=== PATIENT | male | born 1960 | race Native Hawaiian/Other Pacific Islander ===

== ENCOUNTER 2018-05-25 13:15 | Outpatient (CLI) | payer BC, OTHER | END 2018-05-25 19:42 | disposition home or self-care (01) | LOC: LAB 13:15 | DX: N41.0 Acute prostatitis (principal) | CPT/HCPCS: 87077; 87086; 87088; 87186 ==

== ENCOUNTER 2018-05-29 14:58 | Outpatient (CLI) | payer BC, OTHER | END 2018-05-29 22:32 | disposition home or self-care (01) | LOC: US 14:58 | DX: N39.0 Urinary tract infection, site not specified (principal); N50.811 Right testicular pain ==

== ENCOUNTER 2018-07-14 07:54 | Outpatient (CLI) | payer BC, OTHER | END 2018-07-14 19:27 | disposition home or self-care (01) | LOC: LABW 07:54 | DX: R73.9 Hyperglycemia, unspecified (principal) | CPT/HCPCS: 36415; 82947; 83036 ==

== ENCOUNTER 2021-03-01 08:01 | Outpatient (CLI) | payer BC, OTHER | END 2021-03-01 10:00 | disposition home or self-care (01) | LOC: CT 08:01 | PROVIDERS: ATTEND Internal Medicine | DX: Z12.2 Encounter for screening for malignant neoplasm of respiratory organs (principal) ==

== ENCOUNTER 2022-01-18 08:07 | Outpatient (CLI) | payer OTHER | END 2022-01-18 18:55 | disposition home or self-care (01) | LOC: CT 08:07 | PROVIDERS: ATTEND Internal Medicine | DX: R91.1 Solitary pulmonary nodule (principal) | CPT/HCPCS: 36415; 82565; 84520; Q9963 ==

== ENCOUNTER 2022-03-16 11:56 | Outpatient (CLI) | payer OTHER | END 2022-03-16 19:03 | disposition home or self-care (01) | LOC: US 11:56 | PROVIDERS: ATTEND Internal Medicine | DX: M79.651 Pain in right thigh (principal) ==

== ENCOUNTER 2023-01-03 15:30 | Outpatient (CLI) | payer OTHER | END 2023-01-03 19:02 | disposition home or self-care (01) | LOC: CT 15:30 | PROVIDERS: ATTEND Internal Medicine Sleep Medicine | DX: Z09 Encounter for follow-up examination after completed treatment for conditions other than malignant neoplasm (principal); Z87.891 Personal history of nicotine dependence ==